=== PATIENT | female | born 1995 | race Two or more races ===

== ENCOUNTER 2020-01-21 19:13 | Emergency (ER) | payer OTHER ==
[~2020-01-21] VITALS: Ht 162.6 cm; Wt 71.7 kg
[2020-01-21 19:30] VITALS: BP 104/55
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
[2020-01-21] MEDS ORDERED: IBUPROFEN600 MG ORAL (20:41)
[2020-01-21 21:05] VITALS: BP 108/65
== END 2020-01-21 21:05 | disposition home or self-care (01) ==
LOC: EMR 20:38
DX: S00.93XA Contusion of unspecified part of head, initial encounter (principal); V49.9XXA Car occupant (driver) (passenger) injured in unspecified traffic accident, initial encounter; Y92.410 Unspecified street and highway as the place of occurrence of the external cause
CPT/HCPCS: 70450; 81025; 99284